=== PATIENT | female | born 1940 | race Caucasian/White ===

== ENCOUNTER 2021-03-18 02:24 | Inpatient (IN) ==
[2021-03-18] MEDS ORDERED: LACTATED RINGERS 1,000 ML IV ONE ×2 (02:37→05:27)
[2021-03-18] MEDS ORDERED: ONDANSETRON 4 MG/2 ML VIAL IV ONE (02:39)
[2021-03-18 02:47] LABS: Basophils # 0.1 10*3/uL (0.0-0.2); Basophils % 0.2 % (0.0-0.8); Eosinophils % 0.1 % (0.00-10.9); Hemoglobin 11.6 GM/DL (12.0-16.0); Immature Granulocytes Absolute 0.23 #; Lymphocytes # 1.4 10*3/uL (1.4-4.0); Lymphocytes % 6.2 % (21.3-54.2); Mean Corpuscular HGB Conc 32.2 GM/DL (32-36); Mean Corpuscular Volume 101.1 FL (87-102); Mean Platelet Volume 11.3 FL (9.6-12.0); Monocytes % 6.9 % (1.7-12.7); Neutrophils % 85.6 % (38.7-73.9); Platelet Count 318 T/CUMM (130-400); Red Blood Count 3.56 MC/CUMM (3.8-5.5); Red Cell Distribution Width 15.9 % (9.3-17.3); White Blood Count 22.3 T/CUMM (4-12)
[2021-03-18 03:08] LABS: Hypochromasia 1+; Platelet Estimate Normal
[2021-03-18 03:10] LABS: Albumin 3.6 G/DL (3.4-5.0); Bilirubin,Total 0.5 MG/DL (0.2-1.0); Calcium 9.1 MG/DL (8.5-10.1); Osmolality,Calculated 287.7 MOS/KG (273-304); Potassium 4.2 MMOL/L (3.5-5.1)
[2021-03-18] MEDS ORDERED: ASPIRIN CHEW 81 MG TABLET PO STA (03:18)
[2021-03-18] MEDS ORDERED: SODIUM CHLORIDE 0.9% 1,000 ML IV STA (05:22)
[2021-03-18] MEDS ORDERED: NALOXONE 0.4 MG/ML VIAL IV PRN (05:32)
[2021-03-18] MEDS ORDERED: MORPHINE 4 MG/1 ML VIAL IV PRN (05:32)
[2021-03-18] MEDS ORDERED: ONDANSETRON 4 MG/2 ML VIAL IV PRN (05:32)
[2021-03-18 05:39] LABS: Bilirubin,Urine Negative (Negative); Blood, Urine Small mg/dL (Negative); Glucose,Urine (UA) Negative (Negative); Hyaline Casts,Urine 1 /LPF (0-3); Ketones,Urine Negative (Negative); Nitrite,Urine Negative (Negative); Protein,Urine 30 MG/DL; RBC,Urine 2 /HPF (0-4); Urine Appearance CLEAR (Clear); Urine Color Yellow (Yellow); Urine Specific Gravity 1.025 (1.001-1.035); Urine Urobilinogen < 2.0 EU/DL (0.2-1.0)
[2021-03-18] MEDS: SODIUM CHLORIDE 0.9% 1,000 ML IV SCH ×3 (09:07→22:38)
[2021-03-18] MEDS: CIPROFLOXACIN INJ 400 MG/200 ML PREMIX IV SCH ×2 (09:07→17:30)
[2021-03-18] MEDS: DOCUSATE SODIUM 100 MG CAPSULE PO SCH ×3 (09:12→21:32)
[2021-03-18] MEDS: ENOXAPARIN 40 MG/0.4 ML SYRINGE SUBCUT SCH (09:12)
[2021-03-18] MEDS: LEVOTHYROXINE 75 MCG TABLET PO SCH (09:13)
[2021-03-18] MEDS: PANTOPRAZOLE 40 MG TABLET PO SCH (09:13)
[2021-03-18] MEDS: metroNIDAZOLE INJ 500 MG/100 ML PREMIX IV SCH ×2 (10:23→16:02)
[2021-03-18] MEDS: ACETAMINOPHEN 500 MG TABLET PO PRN (14:09)
[2021-03-18 15:24] LABS: Alanine Aminotransferase 20 U/L (13-56); Albumin 2.8 G/DL (3.4-5.0); Alkaline Phosphatase 45 U/L (45-117); Aspartate Amino Transferase 34 U/L (0-37); Blood Urea Nitrogen 37 MG/DL (7-18); Carbon Dioxide 24 MMOL/L (21-32); Estimated Glom Filtration Rate 46 ML/MIN; Glucose 107 MG/DL (74-106); Osmolality,Calculated 276.2 MOS/KG (273-304); Potassium 4.2 MMOL/L (3.5-5.1); Sodium 134 MMOL/L (136-145)
[2021-03-18] MEDS: DULoxetine 30 MG CAPSULE PO SCH (16:02)
[2021-03-18] MEDS: PREGABALIN 100 MG CAPSULE PO SCH ×2 (16:02→21:41)
[2021-03-18] MEDS: FERROUS SULFATE 325 MG TABLET PO SCH ×2 (16:02→21:41)
[2021-03-18] MEDS: MIRTAZAPINE 15 MG TABLET PO SCH (21:41)
[2021-03-19] MEDS: metroNIDAZOLE INJ 500 MG/100 ML PREMIX IV SCH ×4 (01:21→23:54)
[2021-03-19 05:50] LABS: Basophils % 0.2 % (0.0-0.8); Eosinophils % 0.1 % (0.00-10.9); Hematocrit 23.4 VOL% (35.7-47.0); Immature Granulocytes % 0.4 %; Immature Granulocytes Absolute 0.06 #; Lymphocytes % 6.2 % (21.3-54.2); Mean Corpuscular HGB Conc 33.8 GM/DL (32-36); Mean Corpuscular Volume 100.9 FL (87-102); Mean Platelet Volume 11.7 FL (9.6-12.0); Monocytes % 10.9 % (1.7-12.7); Neutrophils % 82.2 % (38.7-73.9); Platelet Count 205 T/CUMM (130-400); Red Blood Count 2.32 MC/CUMM (3.8-5.5); Red Cell Distribution Width 16.8 % (9.3-17.3); White Blood Count 15.8 T/CUMM (4-12)
[2021-03-19 05:52] LABS: Hemoglobin 7.9 GM/DL (12.0-16.0)
[2021-03-19 05:54] LABS: Calcium 7.5 MG/DL (8.5-10.1); Potassium 3.9 MMOL/L (3.5-5.1)
[2021-03-19] MEDS: SODIUM CHLORIDE 0.9% 1,000 ML IV SCH ×3 (06:00→22:20)
[2021-03-19 06:13] LABS: Band Neutrophils 4 % (0-10); Lymphocytes 5 % (20-55); Platelet Estimate Normal; Segmented Neutrophils 85 % (50-85); Total Cells Counted 100
[2021-03-19 06:14] LABS: Hypochromasia Slight; Macrocytosis 1+
[2021-03-19] MEDS: CIPROFLOXACIN INJ 400 MG/200 ML PREMIX IV SCH ×2 (06:18→18:06)
[2021-03-19] MEDS: LEVOTHYROXINE 75 MCG TABLET PO SCH (06:21)
[2021-03-19] MEDS: DULoxetine 30 MG CAPSULE PO SCH (10:57)
[2021-03-19] MEDS: DOCUSATE SODIUM 100 MG CAPSULE PO SCH ×2 (10:57→22:07)
[2021-03-19] MEDS: FERROUS SULFATE 325 MG TABLET PO SCH ×2 (10:57→22:23)
[2021-03-19] MEDS: ENOXAPARIN 40 MG/0.4 ML SYRINGE SUBCUT SCH (10:58)
[2021-03-19] MEDS: PREGABALIN 100 MG CAPSULE PO SCH ×3 (10:58→22:22)
[2021-03-19] MEDS: PANTOPRAZOLE 40 MG TABLET PO SCH (10:58)
[2021-03-19] MEDS ORDERED: PROMETHAZINE 25 MG/1 ML VIAL IM PRN (11:40)
[2021-03-19] MEDS: MIRTAZAPINE 15 MG TABLET PO SCH (22:23)
[2021-03-19] MEDS: ACETAMINOPHEN 500 MG TABLET PO PRN (22:26)
[2021-03-19] MEDS ORDERED: MAGNESIUM SULF RIDER 2 GM/50 ML PREMIX IV ONE (22:55)
[2021-03-20 05:40] LABS: Basophils % 0.2 % (0.0-0.8); Eosinophils # 0.1 10*3/uL (0.0-0.87); Eosinophils % 0.6 % (0.00-10.9); Lymphocytes # 1.5 10*3/uL (1.4-4.0); Lymphocytes % 14.9 % (21.3-54.2); Mean Corpuscular HGB Conc 30.9 GM/DL (32-36); Mean Platelet Volume 11.2 FL (9.6-12.0); Monocytes % 8.2 % (1.7-12.7); Neutrophils % 75.1 % (38.7-73.9); Platelet Count 154 T/CUMM (130-400); Red Cell Distribution Width 16.8 % (9.3-17.3)
[2021-03-20 05:53] LABS: Red Blood Count 1.68 MC/CUMM (3.8-5.5)
[2021-03-20 05:55] LABS: Hematocrit 17.8 VOL% (35.7-47.0); Hemoglobin 5.5 GM/DL (12.0-16.0)
[2021-03-20 05:58] LABS: Bilirubin,Total 1.4 MG/DL (0.2-1.0); Calcium 7.6 MG/DL (8.5-10.1); Osmolality,Calculated 281.4 MOS/KG (273-304); Potassium 3.8 MMOL/L (3.5-5.1)
[2021-03-20 06:04] LABS: Band Neutrophils 2 % (0-10); Hypochromasia 2+; Lymphocytes 17 % (20-55); Microcytosis 1+; Platelet Estimate Adequate; Segmented Neutrophils 75 % (50-85); Total Cells Counted 100
[2021-03-20] MEDS: LEVOTHYROXINE 75 MCG TABLET PO SCH (06:04)
[2021-03-20] MEDS: CIPROFLOXACIN INJ 400 MG/200 ML PREMIX IV SCH ×2 (06:05→20:18)
[2021-03-20] MEDS ORDERED: SODIUM CHLORIDE 0.9% 1,000 ML IV PRN (06:24)
[2021-03-20] MEDS ORDERED: FUROSEMIDE 20 MG/2 ML VIAL IV PRN (06:39)
[2021-03-20] MEDS: PREGABALIN 100 MG CAPSULE PO SCH ×3 (08:05→20:15)
[2021-03-20] MEDS: metroNIDAZOLE INJ 500 MG/100 ML PREMIX IV SCH ×2 (08:05→18:05)
[2021-03-20] MEDS: DOCUSATE SODIUM 100 MG CAPSULE PO SCH ×2 (08:05→20:15)
[2021-03-20] MEDS: FERROUS SULFATE 325 MG TABLET PO SCH ×2 (08:05→20:15)
[2021-03-20] MEDS: ENOXAPARIN 40 MG/0.4 ML SYRINGE SUBCUT SCH (08:05)
[2021-03-20] MEDS: PANTOPRAZOLE 40 MG TABLET PO SCH (08:05)
[2021-03-20 11:43] LABS: Hematocrit 16.4 VOL% (35.7-47.0); Hemoglobin 5.3 GM/DL (12.0-16.0)
[2021-03-20] MEDS: SODIUM CHLORIDE 0.9% 1,000 ML IV SCH (15:00)
[2021-03-20] MEDS: DULoxetine 30 MG CAPSULE PO SCH ×3 (18:16→22:04)
[2021-03-20] MEDS: MIRTAZAPINE 15 MG TABLET PO SCH (20:15)
[2021-03-20] MEDS: PANTOPRAZOLE 40 MG VIAL IV SCH (21:07)
[2021-03-20 21:49] LABS: Hematocrit 25.7 VOL% (35.7-47.0)
[2021-03-20 21:51] LABS: Hemoglobin 8.2 GM/DL (12.0-16.0)
[2021-03-21] MEDS: SODIUM CHLORIDE 0.9% 1,000 ML IV SCH ×3 (00:28→21:07)
[2021-03-21] MEDS: metroNIDAZOLE INJ 500 MG/100 ML PREMIX IV SCH ×3 (00:28→17:48)
[2021-03-21] MEDS: CIPROFLOXACIN INJ 400 MG/200 ML PREMIX IV SCH ×2 (05:23→19:33)
[2021-03-21 06:20] LABS: Basophils % 0.4 % (0.0-0.8); Eosinophils # 0.1 10*3/uL (0.0-0.87); Eosinophils % 1.5 % (0.00-10.9); Hematocrit 22.3 VOL% (35.7-47.0); Hemoglobin 7.2 GM/DL (12.0-16.0); Immature Granulocytes % 1.5 %; Lymphocytes % 14.4 % (21.3-54.2); Mean Corpuscular HGB Conc 32.3 GM/DL (32-36); Mean Platelet Volume 11.1 FL (9.6-12.0); Monocytes % 9.5 % (1.7-12.7); NRBC # 0.02 10*3/uL; Neutrophils % 72.7 % (38.7-73.9); Platelet Count 152 T/CUMM (130-400); Red Cell Distribution Width 18.3 % (9.3-17.3); White Blood Count 6.9 T/CUMM (4-12)
[2021-03-21] MEDS: LEVOTHYROXINE 75 MCG TABLET PO SCH (06:40)
[2021-03-21 06:41] LABS: Albumin 1.9 G/DL (3.4-5.0); Calcium 7.3 MG/DL (8.5-10.1); Osmolality,Calculated 278.3 MOS/KG (273-304); Total Protein 4.4 G/DL (6.4-8.2)
[2021-03-21 06:46] LABS: Eosinophils 2 % (0-10); Hypochromasia Slight; Lymphocytes 11 % (20-55); Platelet Estimate Normal; Segmented Neutrophils 81 % (50-85); Total Cells Counted 100
[2021-03-21] MEDS ORDERED: LIDOCAINE 2% 5 ML VIAL ONE (08:47)
[2021-03-21] MEDS ORDERED: ETOMIDATE 20 MG/10 ML VIAL IV ONE (08:47)
[2021-03-21] MEDS ORDERED: propofoL 200 MG/20 ML VIAL IV ONE (08:50)
[2021-03-21] MEDS ORDERED: ONDANSETRON 4 MG/2 ML VIAL ONE (08:50)
[2021-03-21] MEDS ORDERED: SODIUM CHLORIDE 0.9% 1,000 ML IV PRN ×2 (08:57→10:05)
[2021-03-21] MEDS ORDERED: FUROSEMIDE 20 MG/2 ML VIAL IV PRN (08:57)
[2021-03-21] MEDS: PREGABALIN 100 MG CAPSULE PO SCH ×3 (09:58→21:00)
[2021-03-21] MEDS: DOCUSATE SODIUM 100 MG CAPSULE PO SCH ×2 (09:58→21:00)
[2021-03-21] MEDS: LACTATED RINGERS 1,000 ML IV SCH (09:59)
[2021-03-21] MEDS: PANTOPRAZOLE 40 MG VIAL IV SCH ×2 (09:59→21:05)
[2021-03-21 10:14] LABS: INR 0.9; PT Patient Result 10.3 SECS (10.5-12.0); Partial Thromboplastin Time 24.6 SECS (23.9-33.8)
[2021-03-21] MEDS ORDERED: POTASSIUM CHLORIDE RIDER 10 MEQ/100 ML PREMIX IV PRN (14:13)
[2021-03-21] MEDS ORDERED: POTASSIUM CHLORIDE IV ONE (16:00)
[2021-03-21] MEDS ORDERED: SODIUM CHLORIDE IV ONE (16:00)
[2021-03-21] MEDS ORDERED: POTASSIUM CHLORIDE 20 MEQ TABLET PO ONE (17:00)
[2021-03-21 19:11] LABS: Hematocrit 30.6 VOL% (35.7-47.0)
[2021-03-21] MEDS ORDERED: FUROSEMIDE 20 MG/2 ML VIAL IV ONE (21:00)
[2021-03-21] MEDS: MIRTAZAPINE 15 MG TABLET PO SCH (21:00)
[2021-03-21] MEDS: DULoxetine 30 MG CAPSULE PO SCH (21:01)
[2021-03-22] MEDS: metroNIDAZOLE INJ 500 MG/100 ML PREMIX IV SCH ×2 (00:42→08:33)
[2021-03-22 05:20] LABS: Basophils # 0.1 10*3/uL (0.0-0.2); Basophils % 0.7 % (0.0-0.8); Eosinophils # 0.1 10*3/uL (0.0-0.87); Eosinophils % 1.8 % (0.00-10.9); Hematocrit 32.3 VOL% (35.7-47.0); Hemoglobin 10.5 GM/DL (12.0-16.0); Immature Granulocytes % 2.8 %; Lymphocytes # 1.1 10*3/uL (1.4-4.0); Lymphocytes % 15.3 % (21.3-54.2); Mean Corpuscular HGB Conc 32.5 GM/DL (32-36); Mean Corpuscular Volume 92.3 FL (87-102); Mean Platelet Volume 11.2 FL (9.6-12.0); Monocytes % 11.9 % (1.7-12.7); NRBC # 0.05 10*3/uL; Neutrophils % 67.5 % (38.7-73.9); Platelet Count 163 T/CUMM (130-400); Red Cell Distribution Width 21.4 % (9.3-17.3); White Blood Count 7.1 T/CUMM (4-12)
[2021-03-22 05:40] LABS: Albumin 2.3 G/DL (3.4-5.0); Bilirubin,Total 0.4 MG/DL (0.2-1.0); Calcium 7.7 MG/DL (8.5-10.1); Osmolality,Calculated 279.1 MOS/KG (273-304); Potassium 4.2 MMOL/L (3.5-5.1); Total Protein 5.1 G/DL (6.4-8.2)
[2021-03-22] MEDS: CIPROFLOXACIN INJ 400 MG/200 ML PREMIX IV SCH (05:45)
[2021-03-22] MEDS: LEVOTHYROXINE 75 MCG TABLET PO SCH (05:45)
[2021-03-22] MEDS: LACTATED RINGERS 1,000 ML IV SCH (07:08)
[2021-03-22] MEDS: SODIUM CHLORIDE 0.9% 1,000 ML IV SCH (07:08)
[2021-03-22] MEDS: PANTOPRAZOLE 40 MG VIAL IV SCH (08:33)
[2021-03-22] MEDS: DOCUSATE SODIUM 100 MG CAPSULE PO SCH ×2 (08:33→21:15)
[2021-03-22] MEDS: PREGABALIN 100 MG CAPSULE PO SCH ×3 (08:33→21:15)
[2021-03-22] MEDS: metroNIDAZOLE 500 MG TABLET PO SCH ×2 (14:18→21:13)
[2021-03-22] MEDS: DULoxetine 30 MG CAPSULE PO SCH (16:18)
[2021-03-22] MEDS: MIRTAZAPINE 15 MG TABLET PO SCH ×2 (16:18→16:26)
[2021-03-22] MEDS: PANTOPRAZOLE 40 MG TABLET PO SCH ×2 (17:31→21:16)
[2021-03-22] MEDS ORDERED: LORazepam 2 MG/1 ML VIAL IV PRN (19:03)
[2021-03-22] MEDS: CIPROFLOXACIN 500 MG TABLET PO SCH (21:13)
[2021-03-23] MEDS: MIRTAZAPINE 15 MG TABLET PO SCH (01:57)
[2021-03-23] MEDS: PANTOPRAZOLE 40 MG TABLET PO SCH (06:25)
[2021-03-23] MEDS: LEVOTHYROXINE 75 MCG TABLET PO SCH (06:25)
[2021-03-23 06:35] LABS: Basophils % 0.5 % (0.0-0.8); Eosinophils # 0.1 10*3/uL (0.0-0.87); Eosinophils % 2.4 % (0.00-10.9); Hematocrit 30.9 VOL% (35.7-47.0); Hemoglobin 9.6 GM/DL (12.0-16.0); Immature Granulocytes % 5.3 %; Immature Granulocytes Absolute 0.29 #; Lymphocytes # 0.7 10*3/uL (1.4-4.0); Lymphocytes % 13.5 % (21.3-54.2); Mean Corpuscular HGB Conc 31.1 GM/DL (32-36); Mean Corpuscular Volume 96.9 FL (87-102); Mean Platelet Volume 10.7 FL (9.6-12.0); NRBC # 0.03 10*3/uL; Neutrophils % 67.3 % (38.7-73.9); Platelet Count 158 T/CUMM (130-400); Red Blood Count 3.19 MC/CUMM (3.8-5.5); Red Cell Distribution Width 21.2 % (9.3-17.3); White Blood Count 5.5 T/CUMM (4-12)
[2021-03-23 06:48] LABS: Albumin 2.2 G/DL (3.4-5.0); Bilirubin,Total 0.6 MG/DL (0.2-1.0); Calcium 7.9 MG/DL (8.5-10.1); Osmolality,Calculated 279.1 MOS/KG (273-304); Potassium 3.9 MMOL/L (3.5-5.1)
[2021-03-23 07:09] LABS: Eosinophils 1 % (0-10); Lymphocytes 15 % (20-55); Platelet Estimate Adequate; Segmented Neutrophils 74 % (50-85); Total Cells Counted 100
[2021-03-23 07:10] LABS: Hypochromasia 1+; Microcytosis 1+
[2021-03-23] MEDS: CIPROFLOXACIN 500 MG TABLET PO SCH (08:27)
[2021-03-23] MEDS: metroNIDAZOLE 500 MG TABLET PO SCH (08:27)
[2021-03-23] MEDS: DOCUSATE SODIUM 100 MG CAPSULE PO SCH (08:27)
[2021-03-23] MEDS: PREGABALIN 100 MG CAPSULE PO SCH (08:27)
[2021-03-23 12:02] VITALS: BP 125/79
== END 2021-03-23 12:40 | disposition swing bed (61) | DRG 381 ==
LOC: EDBD → EDUNIT# → N.ED 02:24 → N.EDINP 05:32 → N.5E 07:24
PROVIDERS: ADMIT Family Medicine; ATTEND Family Medicine

== ENCOUNTER 2022-10-24 09:59 | Observation (INO) ==
[2022-10-24 12:08] LABS: Calcium 8.6 MG/DL (8.5-10.1); Osmolality,Calculated 284.8 MOS/KG (273-304); Potassium 3.9 MMOL/L (3.5-5.1)
[2022-10-24 12:09] LABS: Basophils % 0.7 % (0.0-0.8); Eosinophils # 0.1 10*3/uL (0.0-0.87); Eosinophils % 4.5 % (0.00-10.9); Hematocrit 24.7 VOL% (35.7-47.0); Hemoglobin 6.7 GM/DL (12.0-16.0); Immature Granulocytes % 0.4 %; Immature Granulocytes Absolute 0.01 #; Lymphocytes # 0.4 10*3/uL (1.4-4.0); Lymphocytes % 14.6 % (21.3-54.2); Mean Corpuscular HGB Conc 27.1 GM/DL (32-36); Mean Corpuscular Volume 90.1 FL (87-102); Mean Platelet Volume 12.5 FL (9.6-12.0); Monocytes # 0.4 10*3/uL (0.11-0.8); Monocytes % 15.7 % (1.7-12.7); Neutrophils % 64.1 % (38.7-73.9); Platelet Count 197 T/CUMM (130-400); Red Blood Count 2.74 MC/CUMM (3.8-5.5); Red Cell Distribution Width 18.5 % (9.3-17.3); White Blood Count 2.7 T/CUMM (4-12)
[2022-10-24] MEDS ORDERED: ONDANSETRON 4 MG/2 ML VIAL IV PRN (12:15)
[2022-10-24] MEDS ORDERED: ACETAMINOPHEN 325 MG TABLET PO PRN (12:15)
[2022-10-24] MEDS ORDERED: SODIUM CHLORIDE 0.9% 1,000 ML IV PRN (12:15)
[2022-10-24 12:28] LABS: Eosinophils 4 % (0-10); Lymphocytes 8 % (20-55); Total Cells Counted 100
[2022-10-24 12:29] LABS: Anisocytosis Slight; Hypochromia 1+; Platelet Estimate Adequate
[2022-10-24 12:30] LABS: Microcytosis Slight
[2022-10-24 12:31] LABS: Macrocytosis Slight; Polychromasia Slight
[2022-10-24] MEDS: SODIUM CHLORIDE 0.9% 1,000 ML IV SCH (18:48)
[2022-10-24] MEDS ORDERED: OXYBUTYNIN XL 10 MG TABLET PO SCH (21:00)
[2022-10-24] MEDS ORDERED: MIRTAZAPINE 30 MG TABLET PO SCH (21:00)
[2022-10-24] MEDS: DOCUSATE SODIUM 100 MG CAPSULE PO SCH (21:06)
[2022-10-24] MEDS: PANTOPRAZOLE 40 MG TABLET PO SCH (21:06)
[2022-10-25] MEDS: PANTOPRAZOLE 40 MG TABLET PO SCH (05:41)
[2022-10-25 06:06] LABS: Bilirubin,Total 1.1 MG/DL (0.20-1.00); Calcium 8.2 MG/DL (8.5-10.1); Osmolality,Calculated 285.8 MOS/KG (273-304); Potassium 3.7 MMOL/L (3.5-5.1); Total Protein 5.6 G/DL (6.4-8.2)
[2022-10-25 06:06] LABS: Basophils % 0.7 % (0.0-0.8); Eosinophils # 0.2 10*3/uL (0.0-0.87); Eosinophils % 3.9 % (0.00-10.9); Hematocrit 32.4 VOL% (35.7-47.0); Hemoglobin 9.5 GM/DL (12.0-16.0); Immature Granulocytes % 0.2 %; Immature Granulocytes Absolute 0.01 #; Lymphocytes % 22.9 % (21.3-54.2); Mean Corpuscular HGB Conc 29.3 GM/DL (32-36); Mean Corpuscular Volume 89.3 FL (87-102); Mean Platelet Volume 12.6 FL (9.6-12.0); Monocytes # 0.6 10*3/uL (0.11-0.8); Monocytes % 12.9 % (1.7-12.7); Neutrophils % 59.4 % (38.7-73.9); Platelet Count 179 T/CUMM (130-400); Red Blood Count 3.63 MC/CUMM (3.8-5.5); Red Cell Distribution Width 16.8 % (9.3-17.3); White Blood Count 4.3 T/CUMM (4-12)
[2022-10-25] MEDS: SODIUM CHLORIDE 0.9% 1,000 ML IV SCH (06:06)
[2022-10-25] MEDS ORDERED: LEVOTHYROXINE 75 MCG TABLET PO SCH (06:30)
[2022-10-25] MEDS ORDERED: PANTOPRAZOLE 40 MG TABLET PO SCH (09:00)
[2022-10-25] MEDS ORDERED: amLODIPine 5 MG TABLET PO SCH (09:00)
[2022-10-25] MEDS ORDERED: DULoxetine 30 MG CAPSULE PO SCH (09:00)
[2022-10-25] MEDS ORDERED: ROSUVASTATIN 10 MG TABLET PO SCH (09:00)
[2022-10-25] MEDS: DOCUSATE SODIUM 100 MG CAPSULE PO SCH (09:16)
[2022-10-25 09:51] VITALS: BP 113/51
== END 2022-10-25 12:37 | disposition home or self-care (01) ==
LOC: N.EDINP 09:59 → N.ED 09:59 → N.2E 12:37
PROVIDERS: ADMIT Family Medicine; ATTEND Family Medicine